=== PATIENT | female | born 1960 | race Hispanic/Latino ===

== ENCOUNTER 2023-11-16 13:10 | Emergency (ER) | payer SELFPAY ==
[2023-11-16] MEDS ORDERED: IBUPROFEN 200 MG TAB PO ONE (13:54)
[2023-11-16] MEDS ORDERED: ACETAMINOPHEN 500 MG TAB ONE (13:54)
--- NOTE | 2023-11-16 14:58 | RAD REPORT ---
EXAM DESCRIPTION: RAD - Elbow Right 3 View - 11/16/2023 2:32 pm CLINICAL HISTORY: Right elbow pain status post injury FINDINGS: No fracture or dislocation is seen.
--- NOTE | 2023-11-16 15:00 | RAD REPORT ---
EXAM DESCRIPTION: RAD - Foot Right 3 View - 11/16/2023 2:32 pm CLINICAL HISTORY: Right foot pain status post injury FINDINGS: No fracture or dislocation is seen
--- NOTE | 2023-11-16 15:04 | ER ---
Nurse's Notes [facility] Name: Isamar Ocasio Age: 63 yrs Sex: Female : 1960 Arrival Date: 11/16/2023 Time: 13:10 Bed 12 Private MD: Diagnosis: contusion of first and second right toe;Pain in right elbow Presentation: 11/15 13:43 Chief complaint: Patient states: DROPPED A DESK ON RIGHT FOOT THIS AM. ALSO HIT RIGHT db ARM. DENIES FALLING. Coronavirus screen: Client denies travel out of the [place] in the last 14 days. At this time, the client does not indicate any symptoms associated with coronavirus-19. Ebola Screen: Patient negative for fever greater than or equal to 101.5 degrees Fahrenheit, and additional compatible Ebola Virus Disease symptoms Patient denies exposure to infectious person. Patient denies travel to an Ebola-affected area in the 21 days before illness onset. No symptoms or risks identified at this time. Initial Sepsis Screen: Does the patient meet any 2 criteria? No. Patient's initial sepsis screen is negative. Does the patient have a suspected source of infection? No. Patient's initial sepsis screen is negative. Risk Assessment: Do you want to hurt yourself or someone else? Patient reports no desire to harm self or others. Onset of symptoms was November 16, 2023. 13:43 Method Of Arrival: Ambulatory db 13:43 Acuity: ALIYAH 4 db Triage Assessment: 13:45 General: Appears in no apparent distress. comfortable, Behavior is calm, cooperative. db Pain: Complains of pain in right arm and right leg. Neuro: Level of Consciousness is awake, alert, obeys commands, Oriented to person, place, time, situation. Respiratory: Airway is patent Respiratory effort is even, unlabored, Respiratory pattern is regular, symmetrical. Musculoskeletal: Circulation, motion, and sensation intact. Capillary refill < 3 seconds, Range of motion: intact in all extremities. Injury Description: Bruise sustained to right foot, right arm and right leg. Historical: - Allergies: 13:45 PENICILLINS; db - Home Meds: 13:45 amitriptyline 25 mg Oral tablet 1 tab 2 times per day [Active]; db - Immunization history:: Adult Immunizations unknown. - Infectious Disease History:: Denies. - Social history:: Smoking status: Patient denies any tobacco usage or history of. Screenin:[facility] ED Fall Risk Assessment (Adult) History of falling in the last 3 months, iw including since admission. Abuse screen: Denies threats or abuse. Denies injuries from another. Nutritional screening: No deficits noted. Tuberculosis screening: No symptoms or risk factors identified. Assessment: 13:57 General: Appears in no apparent distress. Behavior is calm, cooperative. Pain: iw Complains of pain in right foot and right leg. Neuro: Level of Consciousness is awake, alert, obeys commands, Oriented to person, place, time, situation, Moves all extremities. Full function. Respiratory: Respiratory effort is even, unlabored, Respiratory pattern is regular. GI: Derm: Skin is healthy with good turgor. Musculoskeletal: Range of motion: limited in right foot. Vital Signs: 13:43 BP 123 / 59; Pulse 82; Resp 16; Temp 97; Pulse Ox 99% ; Weight 61.23 kg; Height 4 ft. db 11 in. ; 13:43 Body Mass Index 27.27 (61.23 kg, 149.86 cm) db ED Course: 13:14 Patient arrived in ED. im 13:15 Sherley Santana PA-C is PHCP. sb4 13:15 Simon Patel MD is Attending Physician. sb4 13:45 Triage completed. db 13:47 Arm band placed on. db 13:51 Cassy Lester, RN is Primary Nurse. iw 14:00 Patient has correct armband on for positive identification. Provided Education on: . iw 14:34 Foot Right 3 View XRAY In Process Unspecified. EDMS 14:34 Elbow Right 3 View XRAY In Process Unspecified. EDMS 15:20 No provider procedures requiring assistance completed. Patient did not have IV access iw during this emergency room visit. Administered Medications: 13:57 Drug: Ibuprofen PO 600 mg PO once Route: PO; iw 14:10 Follow up: Response: No adverse reaction iw 13:57 Drug: Acetaminophen PO 1000 mg PO once Route: PO; iw 14:15 Follow up: Response: No adverse reaction iw Medication: 14:00 VIS not applicable for this client. iw Outcome: 15:04 Discharge ordered by . sb4 15:20 Discharged to home via wheelchair, with family, iw 15:20 Condition: good 15:20 Discharge instructions given to patient, family, Instructed on discharge instructions, follow up and referral plans. Demonstrated understanding of instructions, follow-up care, 15:21 Patient left the ED. kb3 Signatures: Dispatcher [employer] Cassy Montanez, RN Steph Barnhart RN RN kb3 Khadijah Day RN RN db Brown, Sophia, PATiffanie PATiffanie sb4 Perla March
--- NOTE | 2023-11-16 15:04 | EDPHYS ---
Physician Documentation [facility] Name: Isamar Ocasio Age: 63 yrs Sex: Female : 1960 Arrival Date: 11/16/2023 Time: 13:10 Bed 12 Private MD: ED Physician Simon Patel HPI: 11/15 13:48 This 63 yrs old Female presents to ER via Ambulatory with complaints of Arm sb4 Injury, Foot Injury. 13:48 states a heavy object fell off a desk and onto her right foot this morning. she is sb4 complaining of pain in her first and second toes. she has not taken anything for the pain. she is also complaining of pain in her right antecubital area, she is unsure how she injured it. Historical: - Allergies: 13:45 PENICILLINS; db - Home Meds: 13:45 amitriptyline 25 mg Oral tablet 1 tab 2 times per day [Active]; db - Immunization history:: Adult Immunizations unknown. - Infectious Disease History:: Denies. - Social history:: Smoking status: Patient denies any tobacco usage or history of. ROS: 13:48 MS/extremity: Positive for injury or acute deformity, pain, per HPI, sb4 13:48 Constitutional: Negative for fever, chills, and weight loss, 13:48 All other systems are negative, Exam: 13:49 Constitutional: This is a well developed, well nourished patient who is awake, alert, sb4 and in no acute distress. Head/Face: Normocephalic, atraumatic. Eyes: Extra-ocular motions intact. Periorbital areas with no swelling, redness, or edema. ENT: Mucous membranes moist. Skin: Warm, dry with normal turgor. Normal color with no rashes, no lesions, and no evidence of cellulitis. 13:49 Musculoskeletal/extremity: pedal and radial pulses intact. pain with ROM of right elbow and right toes. no bruising or swelling noted. Vital Signs: 13:43 BP 123 / 59; Pulse 82; Resp 16; Temp 97; Pulse Ox 99% ; Weight 61.23 kg; Height 4 ft. db 11 in. ; 13:43 Body Mass Index 27.27 (61.23 kg, 149.86 cm) db MDM: 13:25 Patient medically screened. sb4 14:08 Independent interpretation of the following test(s) in the Emergency Department X-Ray: sb4 My interpretation is my interpretations of the right foot xray images and right elbow images are no acute fracture or dislocation. 15:03 Data reviewed: vital signs, nurses notes, radiologic studies, and as a result, I will sb4 discharge patient. Counseling: I had a detailed discussion with the patient and/or guardian regarding the historical points, exam findings, and any diagnostic results supporting the discharge/admit diagnosis, radiology results, to return to the emergency department if symptoms worsen or persist or if there are any questions or concerns that arise at home. 11/15 13:48 Order name: Foot Right 3 View XRAY; Complete Time: 15:01 sb4 11/15 13:48 Order name: Elbow Right 3 View XRAY; Complete Time: 14:59 sb4 Administered Medications: 13:57 Drug: Ibuprofen PO 600 mg PO once Route: PO; iw 14:10 Follow up: Response: No adverse reaction iw 13:57 Drug: Acetaminophen PO 1000 mg PO once Route: PO; iw 14:15 Follow up: Response: No adverse reaction iw Disposition: 15:54 Co-signature as Attending Physician, Simon Patel MD I reviewed the patient's care rn provided by the Advanced Practice Provider and agree with the diagnosis and treatment plan. Disposition Summary: 11/16/23 15:04 Discharge Ordered Notes: Location: Home sb4 Problem: new sb4 Symptoms: have improved sb4 Condition: Stable sb4 Diagnosis - contusion of first and second right toe sb4 - Pain in right elbow sb4 Followup: sb4 - With: Private Physician - When: As needed - Reason: Recheck today's complaints, Re-evaluation by your physician Discharge Instructions: - Discharge Summary Sheet sb4 - Foot Contusion, [id number] sb4 Forms: - Work release form sb4 - Patient Portal Instructions sb4 - Leadership Thank You Letter sb4 Signatures: Dispatcher [employer] Cassy Montanez RN RN iw Nieto, Roman, MD MD rn Benton, Danielle, RN RN db Brown, Sophia, PA-C PA-C sb4
[2023-11-16 16:01] VITALS: BP 123/59; TEMP 97; O2SAT 99
== END 2023-11-16 15:21 | disposition home or self-care (01) ==
LOC: ER 13:10
DX: S90.121A Contusion of right lesser toe(s) without damage to nail, initial encounter (principal); M25.521 Pain in right elbow
CPT/HCPCS: 99283